=== PATIENT | female | born 1985 | race Caucasian/White ===

== ENCOUNTER 2024-01-16 20:44 | Emergency (ER) | payer BC ==
[~2024-01-16] VITALS: Ht 167.6 cm; Wt 65.9 kg
[2024-01-16] MEDS: morphine 4 MG/ML inj SYRINge IV ONE (23:46)
[2024-01-16] MEDS: ondansetron/PF 4mg/2ml inj IV ONE (23:47)
[2024-01-17] MEDS: HYDROcodone/acetaminophen 10/325mg tab PO ONE (00:05)
[2024-01-17] MEDS: ondansetron 4mg rapidly disintigrating tab PO ONE (00:06)
[2024-01-17] MEDS ORDERED: ONDA4TAB12 PO (00:53)
[2024-01-17 00:58] VITALS: BP 101/65; PULSE 69; RESP 16; TEMP 98.6; O2SAT 96
== END 2024-01-17 01:05 | disposition home or self-care (01) ==
LOC: ER 20:46
DX: S16.1XXA Strain of muscle, fascia and tendon at neck level, initial encounter (principal); S06.0XAA Concussion with loss of consciousness status unknown, initial encounter; S00.83XA Contusion of other part of head, initial encounter; Z91.041 Radiographic dye allergy status; W01.0XXA Fall on same level from slipping, tripping and stumbling without subsequent striking against object, initial encounter; Y93.89 Activity, other specified; Y92.89 Other specified places as the place of occurrence of the external cause; Y99.8 Other external cause status
CPT/HCPCS: 70450; 70486; 72125; 99284